=== PATIENT | male | born 1990 | race African-American/Black ===

== ENCOUNTER 2018-01-20 20:09 | Emergency (ER) | payer BC ==
[2018-01-20 20:57] LABS: BILIRUBIN,URINE NEGATIVE (NEG); CLARITY,URINE CLEAR; COLOR,URINE YELLOW; GLUCOSE,URINE 100 mg/dL (NEG); NITRITE,URINE NEGATIVE (NEG); PROTEIN,URINE >=300 mg/dL (NEG-TRACE); UROBILINOGEN,URINE 0.2 mg/dL (0.2 mg/dL)
[2018-01-20 21:14] LABS: BACTERIA,URINE 0 /HPF (0-FEW); GRANULAR CASTS,URINE MODERATE /HPF; HYALINE CASTS, URINE MODERATE /HPF; WAXY CASTS,URINE MODERATE /HPF
[2018-01-20] MEDS: cefTRIAXone IM 250 MG VIAL IM (23:19)
[2018-01-20] MEDS: AZITHROMYCIN 250 MG TABLET. PO (23:19)
== END 2018-01-20 23:24 | disposition home or self-care (01) ==
LOC: ER 20:09
DX: N45.1 Epididymitis (principal); E10.9 Type 1 diabetes mellitus without complications; E78.00 Pure hypercholesterolemia, unspecified; I10 Essential (primary) hypertension; Z88.5 Allergy status to narcotic agent
CPT/HCPCS: 76870; 81001; 87086; 87491; 87591; 96372; 99285-25; J0696; Q0144

== ENCOUNTER → 2018-01-31 | Outpatient (CLI) | payer BC | END | disposition home or self-care (01) | LOC: US 11:12 | DX: M79.662 Pain in left lower leg (principal); M79.89 Other specified soft tissue disorders | CPT/HCPCS: 93971 ==

== ENCOUNTER → 2018-02-06 | Outpatient (CLI) | payer BC | END | disposition home or self-care (01) | LOC: KCIC MRI 13:53 | DX: M71.22 Synovial cyst of popliteal space [Baker], left knee (principal) | CPT/HCPCS: 73721 ==